=== PATIENT | female | born 1995 | race Caucasian/White ===

== ENCOUNTER 2017-01-26 18:34 | Inpatient (IN) | payer OTHER ==
[~2017-01-26] VITALS: Ht 180.3 cm; Wt 92.0 kg
[2017-01-26] MEDS ORDERED: ANTA500C PO (18:40)
[2017-01-26 18:53] VITALS: BP 120/78
[2017-01-26] MEDS ORDERED: OXYTOCIN 30 UNITS IN 0.9% NaCl 500ML IV BAG (J2590) As Ordered ONE (21:16)
[2017-01-26] MEDS ORDERED: OXYTOCIN DRIP 30 UNITS in APPROPRIATE DILUENT 1 EA IV SCH (21:30)
[2017-01-26] MEDS: LR 1,000 ML IV SCH (21:38)
[2017-01-26] MEDS: AMPICILLIN SOD/SULBACTAM SOD 3 GM in D5W MINI-BAG PLUS 100 ML IV SCH (21:38)
[2017-01-26] MEDS: ACETAMINOPHEN 500 MG TAB PO PRN (21:38)
[2017-01-26 21:44] LABS: MEAN CORPUSCULAR HEMOGLOBIN 26.2 pg (27.0-33.0); MEAN CORPUSCULAR HGB CONC 31.9 g/dl (32.0-36.5); MEAN CORPUSCULAR VOLUME 82.2 fl (80.0-96.0); WHITE BLOOD COUNT 14.1 K/mm3 (4.0-10.0)
[2017-01-26] MEDS ORDERED: BICITRA 30ML SOLN UDC As Ordered ONE (22:47)
[2017-01-26] MEDS ORDERED: MORPHINE PRES-FREE INJ 10 MG/10 ML VIAL (J2274) As Ordered ONE (23:07)
[2017-01-26] MEDS ORDERED: ONDANSETRON 4MG/2ML VIAL (J2405) IV PRN (23:16)
[2017-01-26] MEDS ORDERED: METOCLOPRAMIDE INJ 10MG/2ML VIAL (J2765) IV PRN (23:16)
[2017-01-26] MEDS ORDERED: NALBUPHINE HCL 10 MG/ML AMP (J2300) IV PRN (23:16)
[2017-01-26] MEDS ORDERED: NALOXONE INJ 0.4 MG/1 ML VIAL (J2310) IV PRN ×2 (23:16)
[2017-01-26] MEDS ORDERED: OXYTOCIN INJ 10 UNITS/ML VIAL (J2590) As Ordered ONE (23:26)
[2017-01-26] MEDS ORDERED: ONDANSETRON 4MG/2ML VIAL (J2405) As Ordered ONE (23:26)
[2017-01-26] MEDS ORDERED: KETOROLAC 60 MG/2 ML VIAL (J1885) As Ordered ONE (23:26)
[2017-01-26] MEDS ORDERED: ePHEDrine SULFATE 25 MG/5 ML(5MG/ML) SYRINGE As Ordered ONE (23:49)
[2017-01-26 23:53] LABS: CORD GAS ABE A -6.3; CORD GAS HCO3 A 22.6 MEQ/L; CORD GAS O2 SAT A < 15.0 %; CORD GAS PCO2 A 58.3 mmHg; CORD GAS PH A 7.206 UNITS; CORD GAS PO2 A 11.3 mmHg; CORD GAS TCO2 A 24.4 MEQ/L
[2017-01-26 23:56] LABS: CORD GAS ABE V -4.4; CORD GAS HCO3 V 22.9 MEQ/L; CORD GAS O2 SAT V 29.4 %; CORD GAS PCO2 V 49.9 mmHg; CORD GAS PH V 7.279 UNITS; CORD GAS PO2 V 16.4 mmHg; CORD GAS SBC V 19.2 MEQ/L; CORD GAS TCO2 V 24.4 MEQ/L
[2017-01-27] VITALS (9 sets, daily range): BP systolic 102–120; BP diastolic 55–70
[2017-01-27] MEDS ORDERED: METHYLERGONOVINE MALEATE 0.2 MG TAB PO PRN (00:15)
[2017-01-27] MEDS ORDERED: PROMETHAZINE 25 MG TAB PO PRN (00:15)
[2017-01-27] MEDS ORDERED: RHOGAM 300 MCG (1500 IU) INJ (J2790) IM SCH (00:15)
[2017-01-27] MEDS ORDERED: ONDANSETRON 4MG/2ML VIAL (J2405) IV PRN ×2 (00:15→00:30)
[2017-01-27] MEDS ORDERED: MEASLES,MUMPS,RUBELLA VACCINE INJ (MMR-II) (90707) SC SCH (00:15)
[2017-01-27] MEDS ORDERED: METOCLOPRAMIDE INJ 10MG/2ML VIAL (J2765) IV PRN (00:30)
[2017-01-27] MEDS ORDERED: LR 1,000 ML IV SCH (00:30)
[2017-01-27] MEDS ORDERED: PERCOCET 5MG/325MG TAB PO PRN (00:30)
[2017-01-27] MEDS ORDERED: fentaNYL 100 MCG/2 ML INJECTION (J3010) IV PRN (00:30)
[2017-01-27] MEDS: LR 1,000 ML IV SCH ×3 (01:21→21:24)
[2017-01-27] MEDS: PERCOCET 5MG/325MG TAB PO PRN ×3 (02:42→16:02)
[2017-01-27] MEDS: AMPICILLIN SOD/SULBACTAM SOD 3 GM in D5W MINI-BAG PLUS 100 ML IV SCH ×4 (02:45→22:18)
[2017-01-27] MEDS: KETOROLAC 30 MG/ML VIAL (J1885) IV SCH ×3 (05:58→18:50)
[2017-01-27] MEDS: PRENATAL VITAMIN TAB PO SCH (08:56)
[2017-01-28] MEDS: KETOROLAC 30 MG/ML VIAL (J1885) IV SCH (00:42)
[2017-01-28 01:49] VITALS: BP 98/54
[2017-01-28] MEDS: PERCOCET 5MG/325MG TAB PO PRN ×4 (02:39→22:03)
[2017-01-28] MEDS: DOCUSATE SODIUM 100 MG CAP PO PRN ×2 (02:41→22:03)
[2017-01-28 05:23] VITALS: BP 100/58
[2017-01-28] MEDS: LR 1,000 ML IV SCH ×2 (05:24→13:24)
[2017-01-28 06:41] LABS: MEAN CORPUSCULAR HEMOGLOBIN 26.2 pg (27.0-33.0); MEAN CORPUSCULAR VOLUME 81.8 fl (80.0-96.0); RED CELL DISTRIBUTION WIDTH 14.3 % (11.5-14.5); WHITE BLOOD COUNT 10.4 K/mm3 (4.0-10.0)
[2017-01-28] MEDS: PRENATAL VITAMIN TAB PO SCH (08:02)
[2017-01-28 10:00] VITALS: BP 91/56
[2017-01-28] MEDS: ACETAMINOPHEN 500 MG TAB PO PRN (10:18)
[2017-01-28 14:39] VITALS: BP 122/63
[2017-01-28] MEDS ORDERED: diphenhydrAMINE 50 MG CAP PO STA (16:57)
[2017-01-28 18:19] VITALS: BP 121/63
[2017-01-28 21:49] VITALS: BP 111/56
[2017-01-28 23:07] LABS: MEAN CORPUSCULAR HEMOGLOBIN 26.9 pg (27.0-33.0); MEAN CORPUSCULAR HGB CONC 32.6 g/dl (32.0-36.5); MEAN CORPUSCULAR VOLUME 82.4 fl (80.0-96.0); RED CELL DISTRIBUTION WIDTH 14.4 % (11.5-14.5); WHITE BLOOD COUNT 11.9 K/mm3 (4.0-10.0)
[2017-01-28] MEDS: AMPICILLIN SOD/SULBACTAM SOD 3 GM in D5W MINI-BAG PLUS 100 ML IV SCH (23:54)
--- NOTE | 2017-01-29 00:10 | REPUSA ---
CLINICAL HISTORY: POST OP FEVER COMMENTS: PA and lateral views of chest reveal no evidence of active pleural or pulmonary parenchymal abnormali ty. The cardiac silhouette is within limits of normal. The mediastinum and pulmonary vessels appear n ormal. The bony structures are unremarkable. IMPRESSION: No evidence of acute pulmonary pathology.
[2017-01-29 01:49] VITALS: BP 128/72
[2017-01-29] MEDS: PERCOCET 5MG/325MG TAB PO PRN ×3 (04:06→15:53)
[2017-01-29] MEDS: AMPICILLIN SOD/SULBACTAM SOD 3 GM in D5W MINI-BAG PLUS 100 ML IV SCH ×5 (04:06→22:24)
[2017-01-29] MEDS: LR 1,000 ML IV SCH ×3 (05:24→21:24)
[2017-01-29 06:05] VITALS: BP 109/62
--- NOTE | 2017-01-29 07:10 | RO ---
DATE OF PROCEDURE: 01/27/2017 PREOPERATIVE DIAGNOSIS: 1. Term . 2. Chorioamnionitis. 3. Non-reassuring heart rate tracing. POSTOPERATIVE DIAGNOSIS: 1. Term . 2. Chorioamnionitis. 3. Non-reassuring heart rate tracing. 4. Meconium. PROCEDURE: Primary low transverse section. SURGEON: Dr. Gilberto Mendoza [employer] C[employer] ASSOCIATE: Kena Riddle ANESTHESIA: COMPLICATIONS: None. ESTIMATED BLOOD LOSS: 600. URINE OUTPUT: 550 mL. FLUIDS: 1700 mL of isotonic fluid. INDICATION FOR SURGERY: Patient was admitted for concerns of chorioamnionitis ruling in by tachycardia to the 160s and maternal temperature greater than 100.4. She was started on Unasyn and Pitocin for induction of labor. Not found to be ruptured at time of admission to include negative Nitrazine and ferning. Shortly after beginning induction, noted heart rate tracing increasing to 180s and subsequently up to 210s with audible heart rate greater than 240, one noted. A prolonged deceleration and return to extremely elevated heart rate greater than 200. Had been started on Unasyn for chorioamnionitis diagnosis at time of admission. Long discussion with patient/spouse in regards to risks/benefits/indications/alternatives with the current tracing finding. Recommended delivery, indication a nonreassuring heart rate tracing for significant tachycardia. The risks/benefits/alternatives/indications of the procedure reviewed with patient and informed consent was obtained. The patient was taken to the operating room where spinal anesthesia was obtained without difficulty. She was then prepped and draped in normal sterile fashion in dorsal supine position with a left lateral tilt. A Guidry catheter was then placed. Prior to skin incision, Unasyn had recently been given for chorioamnionitis. After a time out was performed, a Pfannenstiel skin incision was made and the scalpel was carried through to the underlying layer of fascia. The fascia was incised in the midline and the incision extended laterally with Torres scissors. The superior aspect of the fascial incision was grasped with Alhaji clamps times two, elevated and the underlying rectus muscle dissected off bluntly aided by Torres scissors and Bovie. Attention then turned to the inferior aspect of the incision, which in a similar fashion was grasped, tented up with Alhaji clamps times two, and the underlying rectus muscle dissected off by both blunt dissection as well as Torres scissors. The rectus muscle was then in the midline. The peritoneum was identified, tented up and entered digitally. The peritoneal incision was then extended horizontally and superiorly with good visualization of the bladder. A bladder blade was then introduced into the abdomen. The vesicouterine peritoneum was identified and found to be inferior at the pending hysterotomy site. It was identified, grasped with pickups and entered sharply with Metzenbaum scissors. This incision was then extended laterally and a bladder flap was created digitally. Next the lower uterine segment was incised in a transverse fashion with a scalpel in routine fashion. The amniotic sac was artificially ruptured, productive of meconium noted fluid. The uterine incision was then extended manually in a superior and lateral fashion. The bladder blade was removed and the was found to be in the cephalic presentation. The baby was delivered without difficulty through a hysterotomy site after slight extension was performed of the fascia as well as further horizontal extension of the peritoneal incision. The cord was doubly clamped and cut. The was handed off to the waiting intensive care unit (NICU) team. Cord gases, arterial and venous, were obtained without difficulty, as well as cord blood. At the time of hysterotomy, the entire uterus was appreciated to be extremely warm. The placenta was removed with gentle traction on the umbilical cord manually. The uterus was exteriorized and cleared of all clots and debris. The bladder blade was once again introduced into the abdomen and uterine incision was repaired with #0 Monocryl in a running locked fashion. A second layer of #0 Monocryl was used for imbrication at the hysterotomy site in a horizontal fashion and noted to be extremely hemostatic at the conclusion of this. Noted normal appearing bilateral ovaries without abnormalities. The posterior cul-de-sac was then irrigated with warm saline and the uterus was reintroduced into the abdomen. The paracolic gutters were also inspected and found to be clear of clot. The fascia was then reapproximated with #0 Vicryl in a running fashion. The subcutaneous layer was closed with #3-0 Vicryl in an interrupted fashion times three. The skin was closed with #4-0 Monocryl in a subcuticular fashion. The incision was then dressed with a pressure dressing and Steri-Strips applied. At the completion of the case, bimanual exam performed with good uterine tone and minimal vaginal bleeding. The patient tolerated the procedure well. Sponge, laps, and needle counts were correct times three. The patient was taken to the recovery room in stable condition.
[2017-01-29] MEDS: PRENATAL VITAMIN TAB PO SCH (10:36)
[2017-01-29] MEDS ORDERED: FIORICET TAB PO ONE (16:45)
[2017-01-29 18:05] VITALS: BP 123/67
[2017-01-29] MEDS: DOCUSATE SODIUM 100 MG CAP PO PRN (20:54)
[2017-01-29] MEDS: FIORICET TAB PO SCH (20:55)
[2017-01-30] MEDS: PERCOCET 5MG/325MG TAB PO PRN ×4 (01:05→19:23)
[2017-01-30] MEDS: FIORICET TAB PO SCH ×6 (01:06→21:33)
[2017-01-30] MEDS: AMPICILLIN SOD/SULBACTAM SOD 3 GM in D5W MINI-BAG PLUS 100 ML IV SCH (04:48)
[2017-01-30] MEDS: LR 1,000 ML IV SCH ×2 (05:24→13:24)
[2017-01-30 06:00] VITALS: BP 94/55
[2017-01-30] MEDS: PRENATAL VITAMIN TAB PO SCH (08:21)
[2017-01-30] MEDS: PIPERACILLIN/TAZOBACTAM SOD 3.375 GM in D5W MINI-BAG PLUS 50 ML IV SCH ×3 (08:36→19:22)
--- NOTE | 2017-01-30 09:01 | IPN ---
DATE: 01/29/2017 21-year-old 1, para 1, now postoperative day #3 from primary low transverse section due to tachycardia/nonreassuring heart rate tracing complicated by chorioamnionitis. At time of admission, fever noted to be greater than 100.4 and was started on Unasyn. section unremarkable. Postoperative course with normal due to void without issues, without issues, decrease in lochia, independent in ambulation/transfers, pain tolerable with oral pain medicine, and tolerating oral diet. However, last evening at approximately 2200 hours noted fever of 101.7. Provided was notified and performed complete blood count (CBC) with white count of 11.9, blood cultures pending, chest xray unremarkable. Was restarted on Unasyn with plan to continue until 24 hours afebrile. OBJECTIVE: VITAL SIGNS: Stable/afebrile currently. GENERAL: Alert and oriented times three, no acute distress. RESPIRATORY: Clear to auscultation bilaterally. CARDIOVASCULAR: Normal sinus rhythm. ABDOMINAL: Fundus at U-2, bowel sounds present, surgical site without concerns at this time. EXTREMITIES: 2+ bilateral lower extremities, Alisha's negative bilateral lower extremity. ASSESSMENT AND PLAN: Currently postoperative day #3 from above with re-noted fever again. Workup to date has been negative, restarted on Unasyn per protocol. Believe likely still chorioamnionitis and not endometritis as was febrile initially at admission and continued Unasyn for 24 hours. Routine postoperative care to be done and closely monitored. Plan to keep on antibiotics until at least 24 hours afebrile. Currently safe to proceed.
[2017-01-30 14:09] VITALS: BP 112/58
[2017-01-30 18:14] VITALS: BP 110/64
[2017-01-31] MEDS: FIORICET TAB PO SCH ×3 (00:53→08:22)
[2017-01-31] MEDS: PIPERACILLIN/TAZOBACTAM SOD 3.375 GM in D5W MINI-BAG PLUS 50 ML IV SCH ×4 (01:52→19:48)
[2017-01-31 05:15] VITALS: BP 105/55
[2017-01-31] MEDS: PRENATAL VITAMIN TAB PO SCH (08:20)
[2017-01-31 10:00] VITALS: BP 112/63
[2017-01-31] MEDS: PERCOCET 5MG/325MG TAB PO PRN ×2 (10:57→19:15)
[2017-01-31 14:05] VITALS: BP 114/63
[2017-01-31 18:15] VITALS: BP 109/68
[2017-02-01] MEDS: PIPERACILLIN/TAZOBACTAM SOD 3.375 GM in D5W MINI-BAG PLUS 50 ML IV SCH (01:48)
[2017-02-01] MEDS: PERCOCET 5MG/325MG TAB PO PRN ×4 (01:48→22:55)
[2017-02-01] MEDS ORDERED: SIMETHICONE 80 MG CHEW TAB PO PRN (03:45)
--- NOTE | 2017-02-01 04:37 | IPNPDOC ---
Text Note Date of Service The patient was seen on 02/01/17. NOTE POD 6 Tara is a 21yo [id number] doing well on POD#6 s/p PLTCS indicated for NRFHR. Her labor course was complicated by chorioamnionitis with maternal fever and tachycardia. She underwent an uncomplicated section and continued IV ABx for 24hr (Unasyn) due to delivery via a in the setting of chorioamnionitis. Then, on POD 2 she seen to have another fever up to 101.7F. She had fever workup to include normal CXR, negative urine culture, but 1 of 2 blood cultures was positive for gram negative rods. She was restarted on IV Unasyn and has been afebrile since POD 2, switched to Zosyn on POD 4 when blood culture showed gram negative rods. I was called by RN at 0345 this morning for patient describing intense chest pain and SOB. Pulse Ox was >98%, normal RR, and normocardic. EKG was ordered which showed NSR. After that, patient stated she was able to burp and have the pain dissipate. She is otherwise doing well. She is having regular soft bowel movements, tolerating regular diet, ambulating often without difficulty, spontaneously voiding without problem. She is /breastpumping. She denies f/c/n/v. No longer having SOB/CP. O: Vitals wnl, afebrile since 2149 on 01/28 General: A&Ox3, WDWN, resting comfortably in bed Cardiac: S1S2 present, RRR, no murmurs Lungs: CTAB, no w/c/r Abdomen: soft, non-distended, non-tender to palpation, Fundus firm at u-3cm, pfannensteil incision well reapproximated with no erythema/induration/drainage, steri strips are clean and intact Ext: negative Alisha's BLE Labs: Urine culture negative 1/2 blood culture negative 2/2 blood culture positive for gram negative rods CBC 01/28/17: WBC 11.9, H/H 8.9/27.3, plt 316 Radiology: CXR wnl A/P: Tara is a 21yo [id number] doing well on POD#6 s/p PLTCS indicated for NRFHR in the setting of chorioamnionitis with continued fevers into POD 2 with resumption of IV antibiotics (unasyn --> zosyn). Fever workup only revealed gram negative bacteremia. Now on Day#3 of zosyn, afebrile >48hr, awaiting specific identification of gram negative rods. Episode of chest pain/SOB this morning with normal vitals, normal EKG, likely related to gas. -RN spoke to lab this morning about getting an ID for gram negative rods and was told the laborer landscape who specifically reads the plates does not come in until later in the morning -Will speak to Infectious Disease regarding plan of care for necessity of continued antibiotics after we receive an ID for the gram negative rods -I spoke with the patient about the plan of care and answered all of her questions -Repeat CBC this morning to confirm normal, anticipate it will be based on afebrile status >48hr -Mylicon to relieve gas pains -Encourage breast feeding, ambulation, use of IS -Regular diet -Ibuprofen/percocet prn pain -OK to remove steri strips tomorrow on POD 7 Madina Riddle MD VS,Milo, I+O VSMilo I+O Vital Signs Date Time Temp Pulse Resp B/P Pulse Ox O2 Delivery O2 Flow Rate FiO2 02/01/17 02:00 98.1 02/01/17 01:48 18 01/31/17 18:15 73 109/68 01/31/17 10:57 Room Air 01/30/17 14:09 98 MADINA RIDDLE MD Feb 01, 2017 04:37
[2017-02-01 06:04] VITALS: BP 107/63
--- NOTE | 2017-02-01 07:07 | ECGEPIP ---
Stationary ECG Study [facility] Test Date: 2017-02-01 Pat Name: GISELL RENEE Department: Room: [place] [address] Gender: F Consumer Banker: DESHAUN : 1995 Requested By: MADINA Cai Order Number: [id number] Reading MD: Shannan Nicholas Measurements Intervals [place] Rate: 72 P: 58 NE: 137 QRS: 46 QRSD: 101 T: 37 QT: 375 QTc: 410 Interpretive Statements SINUS RHYTHM NORMAL Electronically Signed On 02-01-2017 7:06:52 EST by Shannan Nicholas
[2017-02-01 07:29] LABS: EOS % 1.3 % (0.0-3.0); LYMPH % 17.7 % (24.0-44.0); MEAN CORPUSCULAR HEMOGLOBIN 25.9 pg (27.0-33.0); MEAN CORPUSCULAR VOLUME 80.8 fl (80.0-96.0); MONO % 3.2 % (0.0-5.0); NEUTROPHILS % 75.8 % (36.0-66.0); PLATELET COUNT, AUTOMATED 394 k/mm3 (150-450); RED CELL DISTRIBUTION WIDTH 14.4 % (11.5-14.5); WHITE BLOOD COUNT 10.3 K/mm3 (4.0-10.0)
[2017-02-01 07:30] LABS: BASO % 0.2 % (0.0-1.0); EOS # 0.1 K/mm3 (0.0-0.50); LARGE UNSTAINED CELL # 0.2 K/mm3 (0.0-0.4); LARGE UNSTAINED CELL % 1.7 % (0.0-4.0); LYMPH # 1.8 K/mm3 (1.5-6.5); MONO # 0.3 K/mm3 (0.0-0.8); NEUTROPHILS # 7.8 K/mm3 (1.8-7.7)
--- NOTE | 2017-02-01 10:41 | IPNPDOC ---
Text Note Date of Service The patient was seen on 02/01/17. NOTE Update See my note from earlier in the morning for full progress note. ID of gram negative rolando from blood cx returned this morning: bacillus. Read as likely contaminant. Will discontinue IV zosyn at this time, remove IV and plan to observe for 24hr just given the complexity of [place]'s hospital course. Discussed plan of care with patient and she is accepting. Plan to discharge tomorrow morning if stability maintained. Dr. Madina Riddle MD [place] CABRAL VS,Milo, I+O VSMilo I+O Laboratory Tests 02/01/17 06:48 Red Blood Count 3.69 L, Mean Corpuscular Volume 80.8, Mean Corpuscular Hemoglobin 25.9 L, Mean Corpuscular Hemoglobin Concent 32.0, Red Cell Distribution Width 14.4, Neutrophils (%) (Auto) 75.8 H, Lymphocytes (%) (Auto) 17.7 L, Monocytes (%) (Auto) 3.2, Eosinophils (%) (Auto) 1.3, Basophils (%) ( Auto) 0.2, Neutrophils # (Auto) 7.8 H, Lymphocytes # (Auto) 1.8, Monocytes # ( Auto) 0.3, Eosinophils # (Auto) 0.1, Basophils # (Auto) 0.0 Vital Signs Date Time Temp Pulse Resp B/P Pulse Ox O2 Delivery O2 Flow Rate FiO2 02/01/17 06:04 97.3 76 18 107/63 96 Room Air MADINA RIDDLE MD Feb 01, 2017 10:41
[2017-02-01] MEDS: PRENATAL VITAMIN TAB PO SCH (11:11)
[2017-02-01 18:19] VITALS: BP 123/63
[2017-02-02 05:44] VITALS: BP 88/55
[2017-02-02 05:54] VITALS: BP 100/55
[2017-02-02] MEDS: PRENATAL VITAMIN TAB PO SCH (08:08)
[2017-02-02] MEDS ORDERED: OXYC1TAB23 PO (08:24)
[2017-02-02] MEDS ORDERED: COLA100C PO (08:24)
== END 2017-02-02 08:45 | disposition home or self-care (01) | DRG 766 ==
LOC: M LDO 18:34 → M LDI 21:01 → M OBS 01-27 01:24
PROVIDERS: ADMIT Student in an Organized Health Care Education/Training Program; ATTEND Student in an Organized Health Care Education/Training Program
PROC: 3E033VJ Introduction of Other Hormone into Peripheral Vein, Percutaneous Approach (ICD-10-PCS; 2017-01-26)
PROC: 10D00Z1 Extraction of Products of Conception, Low, Open Approach (ICD-10-PCS; principal; 2017-01-27)
DX: O41.1230 Chorioamnionitis, third trimester, not applicable or unspecified (principal); O48.0 Post-term pregnancy; Z3A.40 40 weeks gestation of pregnancy; O76 Abnormality in fetal heart rate and rhythm complicating labor and delivery; O77.0 Labor and delivery complicated by meconium in amniotic fluid; Z37.0 Single live birth